=== PATIENT | male | born 1970 | race Caucasian/White ===

== ENCOUNTER 2020-06-25 05:27 | Emergency (ER) | payer MEDICARE, MEDICAID ==
[~2020-06-25] VITALS: Ht 172.7 cm; Wt 108.5 kg
[~2020-06-25 05:27] MED LIST: HYDR-3240 PO; ZIPR20CA2 PO
[2020-06-25 05:31] VITALS: BP 134/84
--- NOTE | 2020-06-25 05:59 | NUR ---
PT STATES HAVING RT ELBOW PAIN X4 DAYS. PT STATES PAIN AFTER FALLING DOWN, PT PLACED IN GOWN, ON CONTINUOUS PULSE OX, AWAITING ERP EVAL
[2020-06-25] MEDS ORDERED: IBUPROFEN 200 MG TABLET PO ONE (06:00)
[2020-06-25] MEDS ORDERED: IBUPROFEN 200 MG TABLET ONE (06:11)
--- NOTE | 2020-06-25 06:13 | NUR ---
PT REFUSED IBUPROFEN, STATES IT DOES NOTHING. XRAY AT BEDSIDE FOR SCAN
--- NOTE | 2020-06-25 06:59 | NUR ---
REPORT RECEIVED FROM SAVITA DALEY. PT SITTING UP ON EDGE OF [facility] FULLY DRESSED, AWAITING XR RESULTS.
--- NOTE | 2020-06-25 07:36 | NUR ---
Patient given discharge instructions and they have confirmed that they understand the instructions. Patient ambulatory with steady gait.
== END 2020-06-25 07:45 | disposition home or self-care (01) ==
LOC: ED 06:34
DX: M25.521 Pain in right elbow (principal); M79.89 Other specified soft tissue disorders; I10 Essential (primary) hypertension; W01.0XXA Fall on same level from slipping, tripping and stumbling without subsequent striking against object, initial encounter; Y93.89 Activity, other specified; Y92.89 Other specified places as the place of occurrence of the external cause; Y99.8 Other external cause status
CPT/HCPCS: 99283